=== PATIENT | male | born 1965 | race Caucasian/White ===

== ENCOUNTER 2016-10-17 07:45 | Emergency (ER) | payer BC ==
[2016-10-17] MEDS ORDERED: IPRATROPIUM-ALBUTEROL 3 ML NEB INHALATION STA (08:40)
--- NOTE | 2016-10-17 08:43 | ED ---
General Adult HPI - General Chief complaint: Extremity Injury, Upper Stated complaint: pain all over Time Seen by Provider: 10/17/16 08:11 Source: patient, RN notes reviewed Mode of arrival: ambulatory Limitations: no limitations - History of Present Illness Initial comments: Patient is a 51-year-old male presents emergency room for evaluation of right- sided shoulder and chest pain. Patient states he's been dealing with right shoulder pain for the past month. Patient states he thought he has a pinched nerve in his shoulder. Patient states this morning he woke up in the shoulder pain radiating into the right side of his chest. Patient states the pain is worse when he takes a deep breath or coughs. Patient does state that he smokes daily. Patient states he smokes about 2 packs or above per day. Patient states that today he began developing a dry cough. Patient states at times he feels short of breath. Patient denies any fevers or chills. Patient denies headache or dizziness. Patient does state when he woke up this morning he felt "disoriented". Patient denies abdominal pain. Patient denies nausea or vomiting. Patient denies recent heavy lifting or injury to his chest or shoulder. - Related Data Home Medications Medication Instructions Recorded Confirmed Albuterol Inhaler [Ventolin Hfa 2 puff INHALATION RT-QID PRN 12/28/15 10/17/16 Inhaler] Calcium Carbonate [Tums] 1,000 mg PO TID PRN 10/17/16 10/17/16 Diclofenac Sodium [Voltaren] 75 mg PO BID PRN 10/17/16 10/17/16 Empagliflozin/Linagliptin 1 tab PO DAILY 10/17/16 10/17/16 [Glyxambi 10 mg-5 mg Tablet] Famotidine 20 mg PO BID 10/17/16 10/17/16 Losartan Potassium [Cozaar] 25 mg PO DAILY 10/17/16 10/17/16 Umeclidinium Brm/Vilanterol Tr 1 puff INHALATION RT-DAILY 10/17/16 10/17/16 [Anoro Ellipta 62.5-25 Mcg INH] Previous Rx's Medication Instructions Recorded HYDROcodone/APAP 5-325MG [Warren 1 tab PO Q6HR PRN #12 tab 10/17/16 5-325] Levofloxacin [Levaquin] 500 mg PO DAILY #7 tab 10/17/16 Orphenadrine [Norflex] 100 mg PO Q12H PRN #12 tablet.er 10/17/16 Allergies Allergy/AdvReac Type Severity Reaction Status Date / Time azithromycin AdvReac Severe joint pain Verified 10/17/16 08:18 Review of Systems ROS Statement: Those systems with pertinent positive or pertinent negative responses have been documented in the HPI. ROS Other: All systems not noted in ROS Statement are negative. Past Medical History Past Medical History: Diabetes Mellitus, Hyperlipidemia, Hypertension Additional Past Medical History / Comment(s): Childhood epilepsy, hernia History of Any Multi-Drug Resistant Organisms: None Reported Past Surgical History: Hernia Repair Past Psychological History: No Psychological Hx Reported Smoking Status: Current every day smoker General Exam - General Exam Comments Initial Comments: Sitting in exam room, no acute distress. Limitations: no limitations General appearance: alert, in no apparent distress Head exam: Present: atraumatic, normocephalic, normal inspection Eye exam: Present: normal appearance ENT exam: Present: normal exam Neck exam: Present: normal inspection Respiratory exam: Present: normal lung sounds bilaterally. Absent: respiratory distress Cardiovascular Exam: Present: regular rate, normal rhythm, normal heart sounds GI/Abdominal exam: Present: soft, normal bowel sounds. Absent: distended, tenderness, guarding, rebound, rigid Extremities exam: Present: normal inspection Right Shoulder Exam: Present: normal inspection, full ROM, tenderness (Reproducable tenderness over the trapezius muscle; radiating from right neck to shoulder). Absent: swelling Upper Arm exam: Present: normal inspection Elbow exam: Present: normal inspection Neuro motor exam: Present: wrist extension intact, thumb opposition intact, thumb IP flexion intact, thumb adduction intact, fingers 2-5 abduction intact Vascular: Present: normal capillary refill (Capillary refill less than 2 seconds ), radial pulse (2+), ulnar pulse (2+) Back exam: Present: normal inspection Neurological exam: Present: alert, oriented X3, CN II-XII intact, normal gait Psychiatric exam: Present: normal affect, normal mood Skin exam: Present: warm, dry, intact, normal color. Absent: rash Course Vital Signs 10/17/16 10/17/16 10/17/16 07:49 09:08 09:22 Temperature 97.0 F L Pulse Rate 86 77 86 Respiratory 17 Rate Blood Pressure 160/84 O2 Sat by Pulse 98 Oximetry 10/17/16 10/17/16 10/17/16 09:36 10:25 11:00 Temperature 98.7 F 98.7 F Pulse Rate 89 85 85 Respiratory 16 16 Rate Blood Pressure 146/93 125/85 125/85 O2 Sat by Pulse 93 L 96 96 Oximetry Medical Decision Making - Medical Decision Making Patient is a 51-year-old male presents emergency room for evaluation of right shoulder pain. Labs show no significant findings. Chest x-ray: Possible underlying COPD. There is patchy atelectasis or early infiltrate at the posterior base on the lateral view. Patient be started on antibiotics and advised follow-up with primary care provider. Patient will be provided with pain medications as needed for shoulder pain. Appears the patient does have muscle strain of trapezius muscle on the right side. Patient states he understands everything that was discussed with him. Return parameters discussed. Case discussed with Dr. Arora. - Lab Data Result diagrams: 10/17/16 08:55 10/17/16 08:55 Lab Results 10/17/16 10/17/16 10/17/16 Range/Units 08:55 08:55 08:55 WBC 10.3 (3.8-10.6) k/uL RBC 5.46 (4.30-5.90) m/uL Hgb 16.7 (13.0-17.5) gm/dL Hct 48.9 (39.0-53.0) % MCV 89.5 (80.0-100.0) fL MCH 30.6 (25.0-35.0) pg MCHC 34.2 (31.0-37.0) g/dL RDW 14.0 (11.5-15.5) % Plt Count 271 (150-450) k/uL Neutrophils % 72 % Lymphocytes % 19 % Monocytes % 5 % Eosinophils % 1 % Basophils % 1 % Neutrophils # 7.4 (1.3-7.7) k/uL Lymphocytes # 2.0 (1.0-4.8) k/uL Monocytes # 0.5 (0-1.0) k/uL Eosinophils # 0.1 (0-0.7) k/uL Basophils # 0.1 (0-0.2) k/uL PT (9.0-12.0) sec INR (<1.1) APTT (22.0-30.0) sec D-Dimer (<0.60) mg/L FEU Sodium 141 (137-145) mmol/L Potassium 4.6 (3.5-5.1) mmol/L Chloride 104 (98-107) mmol/L Carbon Dioxide 26 (22-30) mmol/L Anion Gap 11 mmol/L BUN 19 (9-20) mg/dL Creatinine 0.78 (0.66-1.25) mg/dL Est GFR (MDRD) Af Amer >60 (>60 ml/min/1.73 sqM) Est GFR (MDRD) Non-Af >60 (>60 ml/min/1.73 sqM) Glucose 112 H (74-99) mg/dL Calcium 9.7 (8.4-10.2) mg/dL Magnesium 2.2 (1.6-2.3) mg/dL Total Bilirubin 0.4 (0.2-1.3) mg/dL AST 33 (17-59) U/L ALT 65 (21-72) U/L Alkaline Phosphatase 76 (38-126) U/L Total Creatine Kinase 99 (55-170) U/L CK-MB (CK-2) 0.9 (0.0-2.4) ng/mL CK-MB (CK-2) Rel Index 0.9 Troponin I <0.012 (0.000-0.034) ng/mL NT-Pro-B Natriuret Pep pg/mL Total Protein 6.7 (6.3-8.2) g/dL Albumin 4.1 (3.5-5.0) g/dL 10/17/16 10/17/16 Range/Units 08:55 08:55 WBC (3.8-10.6) k/uL RBC (4.30-5.90) m/uL Hgb (13.0-17.5) gm/dL Hct (39.0-53.0) % MCV (80.0-100.0) fL MCH (25.0-35.0) pg MCHC (31.0-37.0) g/dL RDW (11.5-15.5) % Plt Count (150-450) k/uL Neutrophils % % Lymphocytes % % Monocytes % % Eosinophils % % Basophils % % Neutrophils # (1.3-7.7) k/uL Lymphocytes # (1.0-4.8) k/uL Monocytes # (0-1.0) k/uL Eosinophils # (0-0.7) k/uL Basophils # (0-0.2) k/uL PT 9.7 (9.0-12.0) sec INR 0.9 (<1.1) APTT 25.7 (22.0-30.0) sec D-Dimer 0.33 (<0.60) mg/L FEU Sodium (137-145) mmol/L Potassium (3.5-5.1) mmol/L Chloride (98-107) mmol/L Carbon Dioxide (22-30) mmol/L Anion Gap mmol/L BUN (9-20) mg/dL Creatinine (0.66-1.25) mg/dL Est GFR (MDRD) Af Amer (>60 ml/min/1.73 sqM) Est GFR (MDRD) Non-Af (>60 ml/min/1.73 sqM) Glucose (74-99) mg/dL Calcium (8.4-10.2) mg/dL Magnesium (1.6-2.3) mg/dL Total Bilirubin (0.2-1.3) mg/dL AST (17-59) U/L ALT (21-72) U/L Alkaline Phosphatase (38-126) U/L Total Creatine Kinase (55-170) U/L CK-MB (CK-2) (0.0-2.4) ng/mL CK-MB (CK-2) Rel Index Troponin I (0.000-0.034) ng/mL NT-Pro-B Natriuret Pep 49 pg/mL Total Protein (6.3-8.2) g/dL Albumin (3.5-5.0) g/dL - Radiology Data Radiology results: report reviewed, image reviewed Disposition Clinical Impression: Pneumonia, Right shoulder strain Disposition: HOME SELF-CARE Condition: Good Instructions: How to Stop Smoking (ED), Pneumonia (ED) Additional Instructions: Take antibiotics as directed. Please follow up with primary care provider in 1- 2 days. If any new symptom arises or symptoms worsen, return to ER as soon as possible. Prescriptions: HYDROcodone/APAP 5-325MG [Warren 5-325] 1 tab PO Q6HR PRN #12 tab PRN Reason: Pain Levofloxacin [Levaquin] 500 mg PO DAILY #7 tab Orphenadrine [Norflex] 100 mg PO Q12H PRN #12 tablet.er PRN Reason: Pain Referrals: Anastacio Cali MD [Primary Care Provider] - 1-2 days Time of Disposition: 10:17
[2016-10-17 09:24] LABS: Basophils # (A) 0.1 k/uL (0-0.2); Basophils % (A) 1 %; CH 30.7; CHCM 34.5; Eosinophils # (A) 0.1 k/uL (0-0.7); Eosinophils % (A) 1 %; HCT 48.9 % (39.0-53.0); HDW 2.62; HGB 16.7 gm/dL (13.0-17.5); Luc # (Auto) 0.14; Luc % (Auto) 1; Lymphocytes % (A) 19 %; MCH 30.6 pg (25.0-35.0); MCHC 34.2 g/dL (31.0-37.0); MCV 89.5 fL (80.0-100.0); Mean Platelet Volume 7.6; Monocytes # (A) 0.5 k/uL (0-1.0); Monocytes % (A) 5 %; Neutrophils # (A) 7.4 k/uL (1.3-7.7); Neutrophils % (A) 72 %; RBC 5.46 m/uL (4.30-5.90); WBC 10.3 k/uL (3.8-10.6); WBC (Perox) 9.36
[2016-10-17 09:35] LABS: ALT 65 U/L (21-72); AST 33 U/L (17-59); Alkaline Phosphatase 76 U/L (38-126); Anion Gap 11 mmol/L; Blood Urea Nitrogen 19 mg/dL (9-20); Calcium 9.7 mg/dL (8.4-10.2); Carbon Dioxide 26 mmol/L (22-30); Chloride 104 mmol/L (98-107); Glucose 112 mg/dL (74-99); Magnesium 2.2 mg/dL (1.6-2.3); Non-African American GFR(MDRD) >60 (>60 ml/min/1.73 sqM); Potassium 4.6 mmol/L (3.5-5.1); Sodium 141 mmol/L (137-145); Total Bilirubin 0.4 mg/dL (0.2-1.3); Total Protein 6.7 g/dL (6.3-8.2)
[2016-10-17 09:38] LABS: INR 0.9 (<1.1); Partial Thromboplastin Time 25.7 sec (22.0-30.0); Prothrombin Time 9.7 sec (9.0-12.0)
[2016-10-17 09:42] LABS: Creatine Kinase 99 U/L (55-170)
--- NOTE | 2016-10-17 09:54 | XR ---
EXAMINATION TYPE: XR chest 2V DATE OF EXAM: 10/17/2016 COMPARISON: None HISTORY: 51-year-old male with chest pain TECHNIQUE: PA and lateral views FINDINGS: Heart is normal size. Mild elongation of the thoracic aorta. Pulmonary vasculature within normal limi ts. The strandy atelectasis at the lung bases. There is patchy posterior basilar opacity on the later al view without pleural effusion. Hyperinflation with flattening of the hemidiaphragms. IMPRESSION: Possible underlying COPD. There is some patchy atelectasis or early infiltrate at the posterior base on the lateral view.
[2016-10-17 09:55] LABS: Creatine Kinase MB 0.9 ng/mL (0.0-2.4); Troponin I <0.012 ng/mL (0.000-0.034)
[2016-10-17] MEDS ORDERED: LEVOFLOXACIN 500 MG TAB PO STA (10:12)
[2016-10-17] MEDS ORDERED: ORPHENADRINE 30 MG/ML 2 ML VIAL IVP STA (10:21)
[2016-10-17] MEDS ORDERED: HYDROcodone/APAP 5-325MG 1 EACH TAB PO STA (10:22)
[2016-10-17 10:26] VITALS: BP 125/85; PULSE 85; RESP 16; TEMP 98.7
== END 2016-10-17 11:00 | disposition home or self-care (01) ==
LOC: EC 07:45
DX: S46.911A Strain of unspecified muscle, fascia and tendon at shoulder and upper arm level, right arm, initial encounter (principal); J18.9 Pneumonia, unspecified organism; E78.5 Hyperlipidemia, unspecified; F17.200 Nicotine dependence, unspecified, uncomplicated; Z88.1 Allergy status to other antibiotic agents; Z79.899 Other long term (current) drug therapy; X58.XXXA Exposure to other specified factors, initial encounter
CPT/HCPCS: 99284; 96374; 36415; 94640; 93005; 85379; 83880; 80053; 82550; 82553; 83735; 84484; 85025; 85610; 85730; 71020; J2360

== ENCOUNTER 2016-12-06 23:39 | Emergency (ER) | payer BC ==
[2016-12-06 23:54] VITALS: RESP 18
[2016-12-07] MEDS ORDERED: ORPHENADRINE 30 MG/ML 2 ML VIAL IM STA (00:18)
[2016-12-07] MEDS ORDERED: KETOROLAC 60 MG/2 ML VIAL IM STA (00:18)
--- NOTE | 2016-12-07 00:36 | ED ---
General Adult HPI - General Source: patient, family, RN notes reviewed Mode of arrival: ambulatory Limitations: no limitations <Trista March - Last Filed: 12/07/16 01:08> <Aramis Squires - Last Filed: 12/08/16 00:58> - General Chief complaint: Neck Pain/Injury Stated complaint: Neck/Shoulder Pain Time Seen by Provider: 12/07/16 00:01 - History of Present Illness Initial comments: 51-year-old male presents to the emergency department with a chief complaint of right-sided neck pain. Patient states that he's been dealing with this right- sided neck pain for about 4 months. His doctor we did order a CAT scan but his insurance would not cover it. Patient states he has this pain to the right hand the neck but today used scab and all of a sudden he states it flared up. Patient states that he has developed this terrible pain that radiates down his right arm that causes some numbness and tingling in his thumb. Patient states he does have numbness and tingling. Patient states certain movement have discomfort. Patient states that he has no headache there is no new falls traumas or injuries. Patient states he just did not knowwe thought he would come here. Patient denies any recent fever, chills, shortness of breath, chest pain, back pain, abdominal pain, nausea vomiting, dysuria or hematuria, constipation or diarrhea, headaches or visual changes, or any other current symptoms. (Trista March) - Related Data Home Medications Medication Instructions Recorded Confirmed Albuterol Inhaler [Ventolin Hfa 2 puff INHALATION RT-QID PRN 12/28/15 12/06/16 Inhaler] Calcium Carbonate [Tums] 1,000 mg PO TID PRN 10/17/16 12/06/16 Diclofenac Sodium [Voltaren] 75 mg PO BID PRN 10/17/16 12/06/16 Empagliflozin/Linagliptin 1 tab PO DAILY 10/17/16 12/06/16 [Glyxambi 10 mg-5 mg Tablet] Famotidine 20 mg PO BID 10/17/16 12/06/16 Losartan Potassium [Cozaar] 25 mg PO DAILY 10/17/16 12/06/16 Umeclidinium Brm/Vilanterol Tr 1 puff INHALATION RT-DAILY 10/17/16 12/06/16 [Anoro Ellipta 62.5-25 Mcg INH] Cyclobenzaprine [Flexeril] 10 mg PO TID 12/06/16 12/06/16 metFORMIN HCL [Glucophage Xr] 500 mg PO DAILY 12/06/16 12/06/16 traMADol HCL [Ultram] 50 mg PO Q6HR PRN 12/06/16 12/06/16 Previous Rx's Medication Instructions Recorded Diazepam [Valium] 5 mg PO BID #20 tab 12/07/16 Hydrocodone/Acetaminophen [Mcneil 1 each PO Q6HR PRN #20 tab 12/07/16 5-325] Ibuprofen [Motrin] 600 mg PO Q6HR PRN #20 tab 12/07/16 Allergies Allergy/AdvReac Type Severity Reaction Status Date / Time azithromycin AdvReac Severe joint pain Verified 12/06/16 23:54 Review of Systems ROS Other: All systems not noted in ROS Statement are negative. <Trista March - Last Filed: 12/07/16 01:08> ROS Other: All systems not noted in ROS Statement are negative. <Aramis Squires - Last Filed: 12/08/16 00:58> ROS Statement: Those systems with pertinent positive or pertinent negative responses have been documented in the HPI. Past Medical History Past Medical History: Diabetes Mellitus, Hyperlipidemia, Hypertension Additional Past Medical History / Comment(s): Childhood epilepsy, hernia History of Any Multi-Drug Resistant Organisms: None Reported Past Surgical History: Hernia Repair Past Psychological History: No Psychological Hx Reported Smoking Status: Current every day smoker Past Alcohol Use History: None Reported Past Drug Use History: None Reported <Trista March - Last Filed: 12/07/16 01:08> General Exam Limitations: no limitations General appearance: alert, in no apparent distress Head exam: Present: atraumatic, normocephalic, normal inspection ENT exam: Present: normal exam, mucous membranes moist Neck exam: Present: tenderness (Patient's tenderness along the right side the neck along the top of the shoulder and down along the spine of the scapula). Absent: normal inspection (She does state when the had bleeding to the right), full ROM (Diffuse pain with range of motion of the neck. Patient is unable to get to extremes of range of motion) Respiratory exam: Present: normal lung sounds bilaterally. Absent: respiratory distress, wheezes, rales, rhonchi, stridor Cardiovascular Exam: Present: regular rate, normal rhythm, normal heart sounds. Absent: systolic murmur, diastolic murmur, rubs, gallop, clicks Extremities exam: Present: normal inspection, full ROM, normal capillary refill. Absent: tenderness, pedal edema, joint swelling, calf tenderness Neurological exam: Present: alert, oriented X3 Psychiatric exam: Present: normal affect, normal mood Skin exam: Present: warm, dry, intact, normal color. Absent: rash <Trista March - Last Filed: 12/07/16 01:08> Medical Decision Making - Radiology Data Radiology results: report reviewed, image reviewed <Trista March - Last Filed: 12/07/16 01:08> <Aramis Squires - Last Filed: 12/08/16 00:58> - Medical Decision Making 41-year-old male presents to the emergency room chief complaint of right-sided neck pain that radiates down the right arm. This patient's pain does appear to be like a torticollis. This time we did give the patient medications for home to help with his discomfort. He was placed in a soft collar and we discussed use of this. We discussed follow-up with Dr. mary desouza and all his questions. He stated he understood and he is given plan. This time he'll be discharged. (Trista March) 51-year-old male presenting with right-sided neck pain. His been present for several weeks. Patient has been on medications at home with minimal relief. Pain did worsen today, there was no new injury. CT was obtained, negative for any acute process. Examination does show significant tenderness over the right trapezius and right rhomboids. There is no weakness in the right upper extremity. Neurologic examination is unremarkable. Patient will be given additional pain medications and should follow up with primary care physician. ( Aramis Squires) Disposition Time of Disposition: 01:08 <Trista March - Last Filed: 12/07/16 01:08> <Aramis Squires - Last Filed: 12/08/16 00:58> Clinical Impression: Right torticollis Disposition: HOME SELF-CARE Condition: Stable Instructions: Spasmodic Torticollis (ED) Additional Instructions: Please use medication as discussed. Please follow up with family doctor if symptoms have not improved over the next two days. Please return to the emergency room if your symptoms increase or worsen or for any other concerns. Prescriptions: Diazepam [Valium] 5 mg PO BID #20 tab Hydrocodone/Acetaminophen [Mcneil 5-325] 1 each PO Q6HR PRN #20 tab PRN Reason: Pain Ibuprofen [Motrin] 600 mg PO Q6HR PRN #20 tab PRN Reason: Pain Referrals: Anastacio Cali MD [Primary Care Provider] - 1-2 days
--- NOTE | 2016-12-07 00:56 | CT ---
EXAM: CT Cervical Spine Without Intravenous Contrast CLINICAL HISTORY: Reason: Pain TECHNIQUE: Axial computed tomography images of the cervical spine without intravenous contrast. CTDI is 41.1 mGy and DLP is 825.6 mGy-cm. This CT exam was performed using one or more of the following dose reduction techniques: automated exposure control, adjustment of the mA and/or kV according to patient size, and/or use of iterative reconstruction technique. COMPARISON: No relevant prior studies available. FINDINGS: Vertebrae: No acute fracture or malalignment. Straightening of the normal cervical lordosis. Discs/spinal canal/neural foramina: No significant osseous spinal or foraminal stenosis. Soft tissues: Unremarkable. Lung apices: Unremarkable as visualized. IMPRESSION: No acute fracture or malalignment.
[2016-12-07] MEDS ORDERED: DIAZEPAM 5 MG/ML 2 ML SYRINGE IM ONE (01:09)
[2016-12-07 01:20] VITALS: BP 147/73; PULSE 93; TEMP 97.4
== END 2016-12-07 01:22 | disposition home or self-care (01) ==
LOC: EC 23:39
DX: M43.6 Torticollis (principal); E11.9 Type 2 diabetes mellitus without complications; I10 Essential (primary) hypertension; F17.200 Nicotine dependence, unspecified, uncomplicated; Z88.1 Allergy status to other antibiotic agents; Z79.84 Long term (current) use of oral hypoglycemic drugs; Z79.51 Long term (current) use of inhaled steroids; Z79.899 Other long term (current) drug therapy
CPT/HCPCS: 72125; 99283; 96372 ×3; J2360; J3360; J1885

== ENCOUNTER → 2018-04-21 | Outpatient (CLI) | payer BC | END | disposition home or self-care (01) | LOC: RADUSWWP 07:05 | PROVIDERS: ATTEND Family Medicine | DX: M79.606 Pain in leg, unspecified (principal) | CPT/HCPCS: 93922 ==

== ENCOUNTER → 2018-08-04 | Outpatient (CLI) | payer BC ==
[2018-08-04 16:03] LABS: Basophils # (A) 0.1 k/uL (0-0.2); Basophils % (A) 1 %; Eosinophils # (A) 0.2 k/uL (0-0.7); Eosinophils % (A) 1 %; HCT 49.9 % (39.0-53.0); HGB 16.4 gm/dL (13.0-17.5); Lymphocytes % (A) 22 %; MCH 29.6 pg (25.0-35.0); MCHC 32.9 g/dL (31.0-37.0); MCV 90.2 fL (80.0-100.0); Mean Platelet Volume 7.7; Monocytes # (A) 0.7 k/uL (0-1.0); Monocytes % (A) 5 %; Neutrophils # (A) 9.1 k/uL (1.3-7.7); Neutrophils % (A) 69 %; Platelet Count 337 k/uL (150-450); RBC 5.53 m/uL (4.30-5.90); RDW 15.3 % (11.5-15.5); WBC 13.3 k/uL (3.8-10.6)
[2018-08-04 18:33] LABS: ALT 37 U/L (21-72); AST 28 U/L (17-59); Albumin 4.4 g/dL (3.5-5.0); Alkaline Phosphatase 107 U/L (38-126); Amylase 50 U/L (30-110); Anion Gap 11 mmol/L; Blood Urea Nitrogen 14 mg/dL (9-20); Calcium 10.4 mg/dL (8.4-10.2); Carbon Dioxide 28 mmol/L (22-30); Chloride 101 mmol/L (98-107); Glucose 107 mg/dL (74-99); Lipase 239 U/L (23-300); Potassium 4.6 mmol/L (3.5-5.1); Sodium 140 mmol/L (137-145); Total Bilirubin 0.6 mg/dL (0.2-1.3); Total Protein 7.2 g/dL (6.3-8.2)
[2018-08-04 18:49] LABS: T4, Free (Free Thyroxine) 1.29 ng/dL (0.78-2.19)
--- NOTE | 2018-08-05 11:55 | BD ---
EXAMINATION TYPE: Axial Bone Density DATE OF EXAM: 08/04/2018 COMPARISON: NONE CLINICAL HISTORY: Pathologic fracture. Osteoporosis screening. Height: 6 FT 2 IN Weight: 325 FRAX RISK QUESTIONS: History of Fracture in Adulthood: YES Secondary Osteoporosis: Current Tobacco Use: YES RISK FACTORS HISTORY OF: Spine Fracture: RECENT MRI LUMBAR PT STATES LUMBAR FX COULD BE OLD MEDICATIONS: Additional Medications: METFORMIN, INJ PEN, FORSEGA, Additional History: EXAM MEASUREMENTS: Bone mineral density about the R hip (g/cm2): 1.150 Bone mineral density about the L hip (g/cm2): 1.305 T Score values are as follows: -----R Neck: 0.8 -----L Neck: 1.9 -----R Total: 2.1 -----L Total: 2.7 BASELINE Bone mineral density about the L Wrist (g/cm2): 0.875 T Score values are as follows: -----Dist. R+U: 1.8 -----Prox. R+U: 1.2 -----Radius total: 1.8 BASELINE IMPRESSION: Normal (Values between +1 and -1 indicate normal bone mass). Consider repeating this study in 5 year s or sooner if there is some new clinical indication. NOTE: T-SCORE=SD OF THE YOUNG ADULT MEAN.
== END | disposition home or self-care (01) ==
LOC: RADBDWWP 14:00
PROVIDERS: ATTEND Family Medicine
DX: M84.48XA Pathological fracture, other site, initial encounter for fracture (principal); E11.9 Type 2 diabetes mellitus without complications; R10.9 Unspecified abdominal pain; Z12.5 Encounter for screening for malignant neoplasm of prostate
CPT/HCPCS: 77080; 80053; 82150; 83690; 84153; 84439; 84443; 85025

== ENCOUNTER → 2020-01-16 | Outpatient (CLI) | payer OTHER ==
--- NOTE | 2020-01-27 11:34 | EM ---
Event monitor summary: Patient wore an event monitor starting 01/16/2020 until 01/22/2024 total length of 7 days. This consisted of 146 hours and 50 minutes. Findings: Baseline rhythm showed sinus rhythm. There are no significant pauses or tachycardia arrhythmias. Patient had 23 automated events. Symptoms corresponded with sinus rhythm or sinus tachycardia. Symptoms of cough, dizzy, lightheadedness which all corresponded with sinus tachycardia. Patient had a brief 7 beat run of SVT which was asymptomatic. He additionally had a PVC which was asymptomatic. Conclusions: Seven-day event monitor showing sinus rhythm without significant pauses, bradycardia arrhythmias or tachycardia arrhythmias. Patient's symptoms corresponded with sinus rhythm. One brief episode of asymptomatic 7 beat run of SVT and one episode of PVC. MTDD
== END | disposition home or self-care (01) ==
LOC: RADECHMAIN 12:07
PROVIDERS: ATTEND Family Medicine
DX: I47.1 Supraventricular tachycardia (principal); I49.3 Ventricular premature depolarization
CPT/HCPCS: 93270

== ENCOUNTER → 2020-02-07 | Outpatient (CLI) | payer OTHER ==
--- NOTE | 2020-02-07 16:11 | US ---
EXAMINATION TYPE: US carotid duplex BILAT DATE OF EXAM: 02/07/2020 COMPARISON: NONE CLINICAL HISTORY: 54-year-old male R42 DIZZINESS AND GIDDINESS. TECHNIQUE: Carotid duplex ultrasound examination. In direct Doppler criteria was utilized. FINDINGS: EXAM MEASUREMENTS: RIGHT: Peak Systolic Velocity (PSV) cm/sec ----- Right CCA: 56.4 ----- Right ICA: 56.0 ----- Right ECA: 150.2 ICA/CCA ratio: 1.0 RIGHT: End Diastole cm/sec ----- Right CCA: 15.4 ----- Right ICA: 23.3 ----- Right ECA: 29.5 LEFT: Peak Systolic Velocity (PSV) cm/sec ----- Left CCA: 59.7 ----- Left ICA: 89.9 ----- Left ECA: 129.7 ICA/CCA ratio: 1.5 LEFT: End Diastole cm/sec ----- Left CCA: 21.3 ----- Left ICA: 41.5 ----- Left ECA: 22.2 VERTEBRALS (direction of flow): Right Vertebral: Antegrade Left Vertebral: Antegrade Rhythm: Normal SERVICE ORDER TAKER NOTES: Bilateral intimal thickening, elevated velocities: right proximal ECA and left pr oximal ECA, no significant stenosis. IMPRESSION: No hemodynamically significant internal carotid artery stenosis on either side. Criteria for Assigning % of Stenosis / Diameter reduction (Estimation based on the indirect measurements of the internal carotid artery velocities (ICA PSV). 1. Normal (no stenosis)=ICA PSV < 125 cm/s: ratio < 2.0: ICA EDV<40 cm/s. 2. Less than 50% stenosis=ICA PSV < 125 cm/s: ratio < 2.0: ICA EDV<40 cm/s. 3. 50 to 69% stenosis=ICA PSV of 125 to 230 cm/s: ration 2.0 ? 4.0: ICA EDV 40-100 cm/s. 4. Greater than 70% stenosis to near occlusion= ICA PSV > 230 cm/s: ratio > 4.0: ICA EDV > 100 cm/s. 5. Near occlusion= ICA PSV velocities may be low or undetectable: variable ratio and ICA EDV. 6. Total occlusion=unable to detect flow.
--- NOTE | 2020-02-08 12:00 | ECHOF ---
Referral Reason:R00.0 Sinus Tach, R42 Dizziness MEASUREMENTS -------- HEIGHT: 182.9 cm WEIGHT: 145.1 kg BP: IVSd: 1.3 cm (0.6 - 1.1) LVIDd: 3.6 cm (3.9 - 5.3) LVPWd: 1.4 cm (0.6 - 1.1) IVSs: 1.7 cm LVIDs: 2.3 cm LVPWs: 2.1 cm Ao Diam: 2.9 cm (2.0 - 3.7) AV Cusp: 2.1 cm (1.5 - 2.6) LA Diam: 3.0 cm (2.7 - 3.8) MV E Jean: 0.87 m/s MV DecT: 191 ms MV A Jean: 1.07 m/s MV E/A Ratio: 0.81 RAP: 5.00 mmHg RVSP: 8.85 mmHg FINDINGS -------- This was a technically difficult study with suboptimal views. The left ventricular size is normal. There is mild concentric left ventricular hypertrophy. Overa ll left ventricular systolic function is normal with, an EF between 55 - 60 %. The RV was not well visualized. The left atrium was not well visualized. The right atrium was not well visualized. 5.0mg of Lumason was utilized for enhancement of images The aortic valve was not well visualized. The mitral valve was not well visualized. There is trace mitral regurgitation. The tricuspid valve was not well visualized. Trace tricuspid regurgitation present. Right ventric ular systolic pressure is normal at < 35 mmHg. The pulmonic valve was not well visualized. The aortic root size is normal. IVC Not well visulized. There is no pericardial effusion. CONCLUSIONS -------- 1. This was a technically difficult study with suboptimal views. 2. The left ventricular size is normal. 3. There is mild concentric left ventricular hypertrophy. 4. Overall left ventricular systolic function is normal with, an EF between 55 - 60 %. 5. There is trace mitral regurgitation. 6. Trace tricuspid regurgitation present. 7. There is no pericardial effusion. INSURANCE COLLECTOR: Lucy Mirza [facility]
== END | disposition home or self-care (01) ==
LOC: RADECHMAIN 14:30
PROVIDERS: ATTEND Family Medicine
DX: R42 Dizziness and giddiness (principal); I51.7 Cardiomegaly
CPT/HCPCS: 93880; C8929; Q9950; 93306

== ENCOUNTER → 2024-06-20 | Outpatient (CLI) | payer MEDICARE, OTHER ==
--- NOTE | 2024-06-20 09:54 | CTL ---
EXAMINATION TYPE: CT Low Dose Lung DATE OF EXAM: 06/20/2024 9:15 AM COMPARISON: None. CLINICAL INDICATION: Male, 58 years old with history of Z12.2 LUNG CANCER SCREENING F17.210 CURRENT S MOKER; , history of tobacco use. TECHNIQUE: Multiple axial non-contrast scans were obtained from approximately the lung apices through the upper abdomen. Coronal and sagittal reformatted images were obtained. Low dose technique was uti lized. MIP were created on a separate workstation and submitted for review. CT DLP:109 mGycm, Automated exposure control for dose reduction was used. CT Contrast: Contrast used: None Oral contrast used: None FINDINGS: Lack of intravenous contrast and low dose technique limits the evaluation of the vascular and soft ti ssue structures. LUNGS: No evidence of pulmonary fibrosis. No evidence of focal consolidation, pneumothorax or pleural effusion. Centrilobular emphysema changes. Nodules: RUL: None. RML: None. RLL: Calcified granuloma image 45 series 9. KENNY: None. LLL: Probable intrafissural lymph node measuring 7 mm series 9 image 36 S[place] lymph node also pre sents image 35. AIRWAY: Patent and unremarkable. HEART: Size within normal limits. Moderate coronary artery calcifications present. MEDIASTINUM: No gross evidence of adenopathy. VASCULATURE: No aortic aneurysm. MUSCULOSKELETAL: No acute osseous abnormalities SOFT TISSUES/LYMPH NODES: Unremarkable. LOWER NECK: No significant findings. UPPER ABDOMEN: No significant findings. IMPRESSION: 1. No clinically significant pulmonary nodules. 2. Mild emphysema. CT LUNG RAD AND CT CHEST RECOMMENDATION: Lung-Rad 2 Benign Appearance or Behavior: Continue annual sc reening with LDCT in 12 months. S Modifier (other clinically significant findings): None Recommend smoking cessation (if current smoker), or continuation of smoking cessation (if prior smoke r). Annual screening for lung cancer with low-dose computed tomography is recommended in adults ages 55 to 77 years who have a 30 pack-year smoking history and currently smoke or have quit within the pa st 15 years. Screening should be discontinued once a person has not smoked for 15 years or develops a health problem that substantially limits life expectancy or the ability or willingness to have curat dusty lung surgery. Lung rads 2021 [email or web address] [email or web address], , 06/20/2024 9:52 AM
== END | disposition home or self-care (01) ==
LOC: RADCTMAIN 08:42
PROVIDERS: ATTEND Family Medicine
DX: Z12.2 Encounter for screening for malignant neoplasm of respiratory organs (principal); J43.9 Emphysema, unspecified; F17.210 Nicotine dependence, cigarettes, uncomplicated
CPT/HCPCS: 71271